=== PATIENT | female | born 1950 | race Caucasian/White ===

== ENCOUNTER 2024-03-04 12:26 | Emergency (ER) | payer MEDICARE, SELFPAY ==
[2024-03-04] VITALS (8 sets, daily range): BP systolic 120–133; BP diastolic 70–79; PULSE 88; RESP 16–20; TEMP 36.6; O2SAT 95–97
--- NOTE | 2024-03-04 13:37 | ED.GENADULT ---
HPI - General Adult General Chief complaint: Skin/Abscess/Foreign Body Stated complaint: back pain Time Seen by Provider: 03/04/24 13:12 History of Present Illness HPI narrative: 73-year-old female present to emergency department for evaluation of left flank pain. Patient states he began developing pain in the left flank approximately 4 days ago and then developed a rash last night. Patient has no prior history of shingles does have history chickenpox as a child. Related Data Allergies Allergy/AdvReac Type Severity Reaction Status Date / Time No Known Allergies Allergy Mild Verified 03/04/24 12:37 Review of Systems Review of Systems: All systems reviewed & are unremarkable except as noted in HPI and below Exam Narrative: APPEARANCE: Well appearing, no pain, no distress, well-nourished. HEAD: normocephalic, atraumatic. EYES: PERRLA/EOMI, conjunctivae clear. NOSE: Normal no drainage EARS:TMS clear with good light reflex. THROAT: Pharynx clear, no exudate. NECK: Supple. No adenopathy, no masses. RESPIRATORY: Airway patent, respirations nonlabored. Clear to auscultation bilaterally, no rales, rhonchi, wheezing. CARDIOVASCULAR: Regular rate and rhythm without murmurs rubs or gallops. ABDOMINAL: Soft, nontender, nondistended, normal bowel sounds MUSCULOSKELETAL: Moves all extremities. Strength/ROM intact, No edema, No calf tenderness. NEURO: Alert. Cranial nerves II through XII intact. SKIN: Shingles rash to left flank that tracks around to her left anterior abdomen in an a dermatomal pattern Course Vital Signs Vital signs: Vital Signs Temperature 97.8 F 03/04/24 12:26 Pulse Rate 88 03/04/24 12:26 Respiratory Rate 16 03/04/24 12:26 Blood Pressure 133/79 03/04/24 12:26 Pulse Oximetry 96 03/04/24 12:26 Temperature 97.8 F 03/04/24 12:26 Pulse Rate 88 03/04/24 12:26 Respiratory Rate 20 03/04/24 13:47 Blood Pressure 130/70 03/04/24 14:47 Pulse Oximetry 95 03/04/24 13:47 Medical Decision Making [facility] Narrative Medical decision making narrative: 73-year-old female presented emergency department for evaluation for left flank pain. Patient does have a shingles rash on her left side. Patient is afebrile with no leukocytosis and a stable hemoglobin. No acute abnormalities on her CMP UA is concerning for urinary tract infection. Patient was started on antibiotics in the emergency department. Patient was also started on valacyclovir. Patient was provided medication for pain control along with Keflex and valacyclovir for discharge. Patient and family are updated the results of the workup. Differential Diagnosis Differential Diagnosis: Skeletal muscular injury, flank pain, UTI, kidney stone, shingles Vital Signs Vital Signs: Vital Signs Temperature 97.8 F 03/04/24 12:26 Pulse Rate 88 03/04/24 12:26 Respiratory Rate 16 03/04/24 12:26 Blood Pressure 133/79 03/04/24 12:26 Pulse Oximetry 96 03/04/24 12:26 Temperature 97.8 F 03/04/24 12:26 Pulse Rate 88 03/04/24 12:26 Respiratory Rate 20 03/04/24 13:47 Blood Pressure 130/70 03/04/24 14:47 Pulse Oximetry 95 03/04/24 13:47 Lab Data Lab results reviewed: Yes I reviewed the patient's lab results. 03/04/24 13:50 03/04/24 13:50 Labs: Lab Results 03/04/24 03/04/24 Range/Units 13:50 13:58 WBC 7.4 (4.5-10.0) K/mm3 RBC 5.12 (4.2-5.4) M/mm3 Hgb 15.9 H (12.0-15.0) g/dL Hct 46.6 (37.0-47.0) % MCV 91.0 (80-100) fl MCH 31.1 (26-34) pg MCHC 34.1 (32-36) g/dl RDW 13.7 (11.5-14.5) % Plt Count 173 (150-375) k/mm3 MPV 9.6 (7.4-10.4) fl Immature Gran % (Auto) 0.3 (0-0.5) % Neut % (Auto) 76.6 H (45.5-73.1) % Lymph % (Auto) 12.1 L (18.3-44.2) % [place] % (Auto) 9.1 H (2.6-8.5) % Eos % (Auto) 1.6 (0-4.4) % Baso % (Auto) 0.3 (0.2-1.2) % Lymph # (Auto) 0.89 L (0.9-3.2) K/mm3 [place] # (Auto) 0.7 H (0.1-0.6)
[2024-03-04 13:57] LABS: Basophils Percent Auto 0.3 % (0.2-1.2); Eosinophils Absolute Auto 0.1 K/mm3 (0-0.3); Eosinophils Percent Auto 1.6 % (0-4.4); Hematocrit 46.6 % (37.0-47.0); Hemoglobin 15.9 g/dL (12.0-15.0); Immature Granulocyte Absolute 0.02 K/mm3 (0.00-0.031); Immature Granulocyte Percent A 0.3 % (0-0.5); Lymphocytes Absolute Auto 0.89 K/mm3 (0.9-3.2); Lymphocytes Percent Auto 12.1 % (18.3-44.2); Mean Corpuscular HGB Conc 34.1 g/dl (32-36); Mean Corpuscular Hemoglobin 31.1 pg (26-34); Mean Platelet Volume 9.6 fl (7.4-10.4); Monocytes Absolute Auto 0.7 K/mm3 (0.1-0.6); Monocytes Percent Auto 9.1 % (2.6-8.5); Neutrophils Absolute Auto 5.7 K/mm3 (1.3-6.7); Neutrophils Percent Auto 76.6 % (45.5-73.1); Platelet Count Result 173 k/mm3 (150-375); Red Blood Count 5.12 M/mm3 (4.2-5.4); Red Cell Distribution Width 13.7 % (11.5-14.5); White Blood Count 7.4 K/mm3 (4.5-10.0)
[2024-03-04] MEDS: HYDROcodone/acetaminophen (*CRX) 5-325 MG TABLET 1 TAB PO (13:59)
[2024-03-04] MEDS: valACYclovir HCL 500 MG TABLET 1000 MG PO (14:00)
[2024-03-04 14:07] LABS: Alanine Aminotransferase 64 U/L (6-35); Albumin Level 4.2 g/dL (3.5-5.1); Alkaline Phosphatase 93 U/L (38-126); Anion Gap 8 mmol/L (4-12); Aspartate Amino Transferase 48 U/L (14-36); Bilirubin,Total 1.6 mg/dL (0.2-1.3); Blood Urea Nitrogen 20 mg/dL (7-17); Calcium 9.4 mg/dL (8.4-10.2); Carbon Dioxide 23 mmol/L (22-30); Chloride 105 mmol/L (98-107); Estimated CRCL calculation 50 ml/min; Estimated Glomerular Filt Rate 49; Glucose 113 mg/dL (65-110); Potassium 4.1 mmol/L (3.4-5.0); Sodium 136 mmol/L (137-145)
[2024-03-04 14:29] LABS: Appearance Urine Cloudy (Clear); Bacteria Urine 4+ /hpf; Bilirubin Urine 1+ (Negative); Blood Urine 1+ (Negative); Color Urine Dark Yellow (Yellow); Glucose Urine UA Negative (Negative); Ketones Urine Trace mg/dL (Negative); Leukocyte Esterase Ur 3+ LEU/UL (Negative); Need Manual Microscopic Reviewed; Nitrate Urine Positive (Negative); Protein Urine 1+ mg/dL (Negative); Specific Grav Ur 1.022 (1.001-1.035); Squamous Epithelial Cell Urine Occasional /hpf (Few); WBC Urine >100 /hpf (0-3); pH Urine 5.5 (5.0-9.0)
[2024-03-04 14:30] LABS: Add Urine Microscopic? YES
[2024-03-04] MEDS: CEPHALEXIN 500 MG CAPSULE PO (14:40)
== END 2024-03-04 14:48 | disposition home or self-care (01) ==
PROVIDERS: Emergency Provider Emergency Medicine
DX: B02.9 Zoster without complications (principal); N39.0 Urinary tract infection, site not specified
CPT/HCPCS: 36415; 80053; 81001; 85025; 87077; 87086; 87088; 87186; 99283; A9270

== ENCOUNTER 2024-03-26 10:14 | Outpatient (CLI) | payer MEDICARE, SELFPAY ==
--- NOTE | ~2024-03-26 | US_ITS ---
BILATERAL LOWER EXTREMITY VENOUS ULTRASOUND Ordering provider: Yola Allen, MANAGER LOCAL History: . FOOT SWELLING . Comparison: None. FINDINGS: RIGHT LOWER EXTREMITY VEINS: --COMMON FEMORAL: Patent and free of thrombus. Normal compressibility, phasic flow and augmentation. --PROXIMAL SUPERFICIAL FEMORAL: Patent and free of thrombus. Normal compressibility, phasic flow and augmentation. --DISTAL SUPERFICIAL FEMORAL: Patent and free of thrombus. Normal compressibility, phasic flow and au gmentation. --POPLITEAL: Patent and free of thrombus. Normal compressibility, phasic flow and augmentation. --POSTERIOR TIBIAL: Patent and free of thrombus. Normal compressibility, phasic flow and augmentation . LEFT LOWER EXTREMITY VEINS: --COMMON FEMORAL: Patent and free of thrombus. Normal compressibility, phasic flow and augmentation. --PROXIMAL SUPERFICIAL FEMORAL: Patent and free of thrombus. Normal compressibility, phasic flow and augmentation. --DISTAL SUPERFICIAL FEMORAL: Patent and free of thrombus. Normal compressibility, phasic flow and au gmentation. --POPLITEAL: Patent and free of thrombus. Normal compressibility, phasic flow and augmentation. --POSTERIOR TIBIAL: Patent and free of thrombus. Normal compressibility, phasic flow and augmentation . IMPRESSION: Negative bilateral lower extremity venous US. No deep vein thrombosis. Reviewed, dictated and finalized at location A.
== END 2024-03-26 10:15 | disposition home or self-care (01) ==
LOC: ANHIMG 10:21
DX: R22.43 Localized swelling, mass and lump, lower limb, bilateral (principal)
CPT/HCPCS: 93970

== ENCOUNTER 2024-04-12 11:17 | Emergency (ER) | payer MEDICARE, SELFPAY ==
--- NOTE | ~2024-04-12 | XR_ITS ---
XR chest 2V Ordering provider: Elkin Ramos MD History: 73 years Female with . weakness, SHINGLES FOR 3 WKS . Comparison: None. FINDINGS: MEDIASTINUM: The cardiac silhouette is not enlarged. LUNGS: No infiltrates, effusions or pneumothorax. OTHER: No free air under the diaphragm. Mild levoscoliosis. Bilateral acromioclavicular joint osteoarthritic changes. IMPRESSION: No acute cardiopulmonary pathology. Reviewed, dictated and finalized at location A.
[2024-04-12 11:20] VITALS: BP 133/78; PULSE 100; RESP 20; TEMP 36.4; O2SAT 99
--- NOTE | 2024-04-12 11:28 | ECG_ITS ---
Test Date: 2024-04-12 11:33:22 Measurements Intervals [place] Rate: 104 P: 18 LA: 213 QRS: -63 QRSD: 91 T: 26 QT: 344 QTc: 454 Interpretive Statements SINUS TACHYCARDIA WITH FIRST DEGREE AV BLOCK INCOMPLETE RIGHT BUNDLE BRANCH BLOCK [90+ ms QRS DURATION, TERMINAL R IN V1/V2, 40+ ms S IN I/aVL/V4/V5/V6] SUSPECT PREVIOUS INFERIOR MYOCARDIAL INFARCTION , PROBABLY OLD [40+ ms Q WAVE AND/OR ST/T ABNORMALITY IN II/aVF] ABNORMAL ECG No previous ECG available for comparison Electronically Signed On 04-13-2024 10:58:07 CDT by Hoang Funez M.D.
[2024-04-12 11:33] VITALS: PULSE 106
[2024-04-12 11:46] LABS: Basophils Percent Auto 0.3 % (0.2-1.2); Eosinophils Absolute Auto 0.3 K/mm3 (0-0.3); Eosinophils Percent Auto 2.9 % (0-4.4); Hematocrit 51.5 % (37.0-47.0); Hemoglobin 17.3 g/dL (12.0-15.0); Immature Granulocyte Absolute 0.03 K/mm3 (0.00-0.031); Immature Granulocyte Percent A 0.3 % (0-0.5); Lymphocytes Absolute Auto 1.54 K/mm3 (0.9-3.2); Mean Corpuscular HGB Conc 33.6 g/dl (32-36); Mean Corpuscular Hemoglobin 31.5 pg (26-34); Mean Corpuscular Volume 93.8 fl (80-100); Mean Platelet Volume 9.7 fl (7.4-10.4); Monocytes Absolute Auto 0.6 K/mm3 (0.1-0.6); Monocytes Percent Auto 6.9 % (2.6-8.5); Neutrophils Absolute Auto 6.6 K/mm3 (1.3-6.7); Neutrophils Percent Auto 72.6 % (45.5-73.1); Platelet Count Result 295 k/mm3 (150-375); Red Blood Count 5.49 M/mm3 (4.2-5.4); Red Cell Distribution Width 14.1 % (11.5-14.5)
[2024-04-12 11:56] LABS: Alanine Aminotransferase 58 U/L (6-35); Albumin Level 4.3 g/dL (3.5-5.1); Alkaline Phosphatase 85 U/L (38-126); Anion Gap 11 mmol/L (4-12); Aspartate Amino Transferase 46 U/L (14-36); Bilirubin,Total 1.6 mg/dL (0.2-1.3); Blood Urea Nitrogen 18 mg/dL (7-17); Carbon Dioxide 24 mmol/L (22-30); Chloride 102 mmol/L (98-107); Estimated CRCL calculation 49 ml/min; Estimated Glomerular Filt Rate 44; Glucose 103 mg/dL (65-110); Potassium 3.9 mmol/L (3.4-5.0); Sodium 137 mmol/L (137-145)
--- NOTE | 2024-04-12 12:15 | ED.WEAKNESS ---
HPI - Weakness General Chief complaint: Weakness Stated complaint: shingles Time Seen by Provider: 04/12/24 11:31 History of Present Illness HPI Narrative: Patient is a 73-year-old female who presents ER with weakness. Was seen here 1 month ago and diagnosed with shingles. She was placed on valacyclovir. Since then she has had progressive fatigue. She is still able to walk but reports has no desire to do anything. She has been eating and drinking poorly. She only has 1 kidney that is present on left side. She has some mild flank pain that persists on the same side since having shingles. No new GI or urinary symptoms. No fevers. Related Data Allergies Allergy/AdvReac Type Severity Reaction Status Date / Time No Known Allergies Allergy Mild Verified 03/04/24 12:37 Review of Systems Review of Systems: All systems reviewed & are unremarkable except as noted in HPI and below Constitutional: Constitutional: Denies chills, Reports fatigue, Denies fever(s) and Reports weakness ENT: Reports system reviewed and no additional complaints, except as documented Cardiovascular: Cardiovascular: Reports no additional cardiovascular complaints Respiratory: Respiratory: Reports no additional respiratory complaints Gastrointestinal: Gastrointestinal: Reports no additional gastrointestinal complaints Genitourinary: Genitourinary: Denies nocturia, Denies dysuria and Reports flank pain PMFSH Past Medical History Medical History (Updated 04/12/24 @ 13:15 by Elkin Ramos MD) Hypertension Kidney stones Surgical History Surgical History (Updated 04/12/24 @ 12:17 by Elkin Ramos MD) H/O right nephrectomy Exam Narrative: GENERAL: Fatigued-appearing, well-nourished, and in no acute distress. HEAD: Normocephalic, atraumatic. EYES: PERRL and EOMI. ENT: Mucous membranes moist. CHEST: Clear to auscultation. No respiratory distress. HEART: Tachycardic and regular. Normal peripheral pulses. ABDOMEN: Soft, nontender, nondistended. No CVA tenderness. EXTREMITIES: Normal range of motion. No edema. SKIN: Warm, dry, no rash. Bruising/scarring left flank from previous shingles infection. NEURO: Alert and oriented x3. PSYCH: Normal mood and affect. Course Vital Signs Vital signs: Vital Signs Temperature 97.5 F L 04/12/24 11:20 Pulse Rate 100 04/12/24 11:20 Respiratory Rate 20 04/12/24 11:20 Blood Pressure 133/78 04/12/24 11:20 Pulse Oximetry 99 04/12/24 11:20 Oxygen Delivery Room Air 04/12/24 11:20 Temperature 97.5 F L 04/12/24 11:20 Pulse Rate 97 04/12/24 12:21 Respiratory Rate 16 04/12/24 12:21 Blood Pressure 104/78 04/12/24 12:21 Pulse Oximetry 96 04/12/24 12:21 Oxygen Delivery Room Air 04/12/24 11:20 MDM - Weakness MDM Narrative Medical decision making narrative: -Course: Patient resting comfortably in the ER. Tolerated hydration. Verbalized understanding of treatment plan. -Co-morbidities complicating care: Right nephrectomy -Social determinants of health: Lives at home -External Chart Review: ER visit from 03/04/2024 -Hx from independent Sources: Patient and daughter -Independent interpretation of studies: Slight bump in creatinine from baseline. Mild/nonspecific transaminitis unchanged from previous visit. Urinalysis with evidence of infection likely causing patient's symptoms. Elevated hemoglobin likely related to dehydration. -Interventions: 1 L IV fluid. -Shared decision making / Disposition: Educated patient daughter. Verbalized understanding. Discharge home with oral antibiotics. Lab Data 04/12/24 11:37 04/12/24 11:37 Labs: Lab Results 04/12/24 04/12/24 Range/Units 11:37 12:17 WBC 9.0 (4.5-10.0) K/mm3 RBC 5.49 H (4.2-5.4) M/mm3 Hgb 17.3 H (12.0-15.0) g/dL Hct 51.5 H (37.0-47.0) % MCV 93.8 (80-100) fl MCH 31.5 (26-34) pg MCHC 33.6 (32-36) g/dl RDW 14.1 (11.5
[2024-04-12] MEDS: SODIUM CHLORIDE 0.9% IV 1,000 ML 999 ML IV CONT (12:20)
[2024-04-12 12:21] VITALS: BP 104/78; PULSE 97; RESP 16; O2SAT 96
[2024-04-12 12:34] LABS: Add Urine Microscopic? YES; Appearance Urine Cloudy (Clear); Bacteria Urine 4+ /hpf; Bilirubin Urine Negative (Negative); Blood Urine Negative (Negative); Color Urine Dark Yellow (Yellow); Glucose Urine UA Negative (Negative); Ketones Urine Trace mg/dL (Negative); Leukocyte Esterase Ur 2+ LEU/UL (Negative); Need Manual Microscopic Reviewed; Nitrate Urine Positive (Negative); Protein Urine 1+ mg/dL (Negative); RBC Urine 0-2 /hpf (0-2); Specific Grav Ur 1.024 (1.001-1.035); Squamous Epithelial Cell Urine None Seen /hpf (Few); WBC Urine 51-100 /hpf (0-3); pH Urine 5.5 (5.0-9.0)
[2024-04-12 13:43] VITALS: BP 122/75; PULSE 88; RESP 20; O2SAT 98
== END 2024-04-12 13:47 | disposition home or self-care (01) ==
PROVIDERS: Emergency Provider Emergency Medicine
DX: E86.0 Dehydration (principal); N39.0 Urinary tract infection, site not specified; I10 Essential (primary) hypertension
CPT/HCPCS: 36415; 71046; 80053; 81001; 85025; 87077; 87086; 87088; 87186; 93005; 96360; 99284; J7030

== ENCOUNTER 2025-01-25 14:00 | Outpatient (RCR) | payer MEDICARE, SELFPAY ==
--- NOTE | 2024-12-27 14:46 | OPREHPOC ---
Outpatient Therapy Plan of Care This is a Multidisciplinary Plan of Care that may contain components documented by all disciplines (PT, OT, and ST.) PT Problem 1 PT Problem #1 Knowledge Deficit PT Goal 1 Goal / Goal Update 1. Pt to be IND with issued HEP PT Problem 2 PT Problem #2 Impaired Gait PT Goal 1 Goal / Goal Update 1. Pt to improve 2 min walk distance from 215ft to 300ft 2. Pt to improve gait to a step through pattern 100% of the time Target Visit 8 PT Problem 3 PT Problem #3 Impaired Strength PT Goal 1 Goal / Goal Update 1. Pt to improve 5xSTS time from 26s to 15s without UE support 2. Pt to demonstrate 10 full range diego heel raises to demonstrate adequate strength for push off
--- NOTE | 2024-12-27 14:47 | PTOPEVAL1 ---
Assessment and note entered by Shaan Rutledge, PT, DPT Evaluation Information Assessment Status Evaluation Diagnosis generalized weakness ICD-10 Condition Codes (PT) Weakness R53.1 Subjective Information Pt reports she had shingles last February, states it is still healing. She states her mobility and day to day activity was extremely limited when her shingles was in full force. She had once controlled fall while cleaning. She has adult children that life with her. She would like to improve her balance to be able to clean her home without fear, be more comfortable with the stairs, and being able to walk around the store better. She only pain she has typically is from her shingles. Reported Pain Level Pain Score 4: Self Report Assessment PT Clinical Summary Pt presents to therapy today for her initial evaluation with a diagnosis of balance deficits. Today she demonstrates decreased LE strength throughout, impaired gait pattern, has an uneven stride and step length with a largely uncompensated Trendelenburg pattern. She also demonstrates decreased gait speed, decreased static and dynamic balance, and scores on the Tinetti and 2min walk test place her at an increased risk for falls. Skilled therapy services are indicated to address balance and safety concerns, to improved LE strength, and to improve functional independence. Plan of Care Interventions Electrical Stimulation,Gait Training,Hot Pack/Cold Pack,Manual Therapy,Neuro Re-education,Patient/ Caregiver Education,Therapeutic Activities, Therapeutic Exercise PT Services Indicated Yes Treatment Frequency and 2x/wk for 8 visits Duration These treatments will address the objective and functional deficits as defined above. The patient will be advanced safely and appropriately in order for the patient to progress towards his/her prior level of function. Additional exercises will be introduced and as well as a comprehensive home exercise program upon discharge, if needed, to ensure carryover of functional gains achieved in the clinic. This treatment plan has been reviewed and agreement upon by the patient.
--- NOTE | 2025-01-15 14:55 | PCPTNOTE ---
Patient no showed to appointment this date. Called and spoke with daughter who states patient forgot and will reschedule appointment.
--- NOTE | 2025-01-18 08:39 | PCPTNOTE ---
Patient called day before visit to cancel due to illness.
--- NOTE | 2025-01-31 07:22 | OPREHPOC ---
Outpatient Therapy Plan of Care This is a Multidisciplinary Plan of Care that may contain components documented by all disciplines (PT, OT, and ST.) PT Problem 1 PT Problem #1 Knowledge Deficit PT Goal 1 Goal / Goal Update 1. Pt to be IND with issued HEP Progress Met PT Problem 2 PT Problem #2 Impaired Gait PT Goal 1 Goal / Goal Update 1. Pt to improve 2 min walk distance from 215ft to 300ft 2. Pt to improve gait to a step through pattern 100% of the time Target Visit 8 Progress Partially Met PT Problem 3 PT Problem #3 Impaired Strength PT Goal 1 Goal / Goal Update 1. Pt to improve 5xSTS time from 26s to 15s without UE support 2. Pt to demonstrate 10 full range diego heel raises to demonstrate adequate strength for push off Progress Met
--- NOTE | 2025-01-31 07:22 | PTOPDC ---
Assessment and note entered by Johnson Mitchell, PT Evaluation Information Assessment Status Discharge Diagnosis generalized weakness ICD-10 Condition Codes (PT) Weakness R53.1 Subjective Information Reports that overall she is doing better. She has been diligent with her therapy and feels it has helped. Still feels that she has a ways to go but knows that she needs to push herself outside of therapy and plans to do so. She has understanding of her HEP. Desires discharge at this time. Assessment PT Clinical Summary Patient has seen improvement with consistency in exercise. Overall she continues to present as a moderate fall risk based on gait analysis and Tinetti but has shown improvement in a positive direction towards correction. Will continue home exercise activity to continue to improve strength of legs and stability with functional activity. No concerns at this time. Plan of Care PT Services Indicated Yes
== END 2025-01-31 08:11 | disposition home or self-care (01) ==
LOC: ANHGOSHPT 14:00
PROVIDERS: PCP Student in an Organized Health Care Education/Training Program; Visit Provider Student in an Organized Health Care Education/Training Program
DX: R26.89 Other abnormalities of gait and mobility (principal)
CPT/HCPCS: 97110; 97112; 97116; 97161; 97530